=== PATIENT | female | born 1985 | race American Indian/Alaskan Native ===

== ENCOUNTER 2016-07-06 15:44 | Inpatient (IN) | payer MEDICAID ==
--- NOTE | 2016-07-06 16:37 | History and Physical Report ---
History of Present Illness Date of examination: 07/06/16 Chief complaint: Elevated blood pressure History of present illness: 31-year-old 0-11 at 33+4 weeks is admitted for above issue and complaint; she is a life cycle [employer] patient. Essential history this patient with care at [facility] which has been complicated by positive QUAD s/p Negative amniocentesis. She claims her first was complicated by positive QUAD with negative amnio as well. Patient gives an oral History of IUGR, last ultrasound was obtained near [facility]. It appears the rest of her has been unremarkable. On 07/01/16 however, she had elevated BP to the 160's/100's in the clinic. She had 24-hour urine protein collected. Patient complains the volume of urine produced was small. Called [facility] Office and I was informed results is 120 mg in 24 hrs. It appears no documentation is made of the volume of urine produced. He is sent here today as she had another elevated blood pressure in the office today. Systolic blood pressures 160 over 100s diastolic. She denies headache, no scotomata, no abdominal pain. She has no contractions, no loss of fluid no vaginal bleeding plus movement Past History Past Medical History: no pertinent history Past Surgical History: no surgical history [employer] History: chlamydia. denies: gonorrhea, hepatitis B, hepatitis C, herpes, HIV, syphilis Social history: single, full code. denies: smoking, alcohol abuse, prescription drug abuse, IV drug use - Obstetrical History Expected Date of Delivery: 08/20/16 Actual Gestation: 33 Week(s) 4 Day(s) : 3 Para: 1 Number of Pregnancies: 0 Induced : 1 Number of Living Children: 1 Medications and Allergies Allergies Allergy/AdvReac Type Severity Reaction Status Date / Time No Known Allergies Allergy Unverified 01/05/16 18:20 Review of Systems Constitutional: no fever, no chills Eyes: no diplopia, no photophobia, no loss of peripheral vision, no loss of vision, no tunnel vision, no blind spots Ears, nose, mouth and throat: headache Cardiovascular: no chest pain, no orthopnea, no syncope, no lightheadedness, no shortness of breath, no dyspnea on exertion Respiratory: no cough with sputum, no hemoptysis, no shortness of breath, no dyspnea on exertion Gastrointestinal: no abdominal pain, no nausea, no vomiting, no heartburn, no indigestion, no dyspepsia/bloating Genitourinary: no vaginal bleeding, no vaginal discharge, no leakage of fluid Neurological: no seizures, no double vision - Physical Exam Cardiovascular: Regular rate, Normal S1, Normal S2 Lungs: Positive: Clear to auscultation, Normal air movement Abdomen: Positive: normal appearance, soft. Negative: distention, tenderness, guarding, rigidity Uterus: Positive: enlarged (EFW ~ 3200). Negative: tender Adnexa: both: normal Extremities: Positive: normal - Obstetrical FHR: category 1 Results All other labs normal. Assessment and Plan A: 31 y/o at 33+4 wks with elevated BP Issues -Oral hx of Pos QUAD s/p neg amnio -suspect IUGR P: -Admit for observation -HELLP labs and 24-hour urine protein -Serial BP's -Growth scan -Consider BMZ course if BP's noted to be elevated -Consider MFM consult after 24 hr protein -Disposition after serial BP's - Patient Problems (1) 33 weeks gestation of Current Visit: Yes Status: Acute (2) Hypertension affecting in third trimester Current Visit: Yes Status: Acute
[2016-07-06] MEDS ORDERED: NORMODYNE IV PRN (16:45)
[2016-07-06 19:18] LABS: Bilirubin,Urine NEG (Negative); Blood,Urine NEG (Negative); Ketones,Urine NEG (Negative); Leukocyte Esterase,Urine NEG (Negative); Mucus,Urine 3+ /HPF; Nitrite,Urine NEG (Negative)
[2016-07-06] MEDS: LACTATED RINGERS 1,000 ML IV SCH (20:00)
[2016-07-06 20:41] LABS: Hematocrit 27.8 % (30.3-42.9); Hemoglobin 8.3 gm/dl (10.1-14.3); Mean Corpuscular HGB Conc 30 % (30-34); Platelet Count 181 K/mm3 (140-440); Red Blood Count 4.09 M/mm3 (3.65-5.03); Red Cell Distribution Width 19.5 % (13.2-15.2); White Blood Count 8.9 K/mm3 (4.5-11.0)
--- NOTE | 2016-07-06 20:42 | Event Note ---
Date: 07/06/16 Just reviewed report of growth scan; EFW is 1703 g (2%). Note that AC and FL are ~1-2 weeks behind BPD and HC. BPP 02/01 today A: Patient has severe IUGR P: -Will obtain Doppler studies now -Celestone course now -MFM consult -Notify NICU -Will start Magnesium for severe range BP's -Discuss above with patient
[2016-07-06 20:46] LABS: Mean Corpuscular Hemoglobin 20 pg (28-32); Mean Corpuscular Volume 68 fl (79-97)
[2016-07-06 21:07] LABS: Alanine Aminotransferase 9 units/L (7-56); Albumin 2.9 g/dL (3.9-5); Albumin/Globulin Ratio 0.8 %; Alkaline Phosphatase 98 units/L (35-129); Anion Gap 20 mmol/L; BUN/Creatinine Ratio 36.66; Bilirubin,Total 0.6 mg/dL (0.1-1.2); Blood Urea Nitrogen 22 mg/dL (7-17); Calcium 8.3 mg/dL (8.4-10.2); Carbon Dioxide 19 mmol/L (22-30); Chloride 101.1 mmol/L (98-107); Glucose 117 mg/dL (65-100); Potassium 3.5 mmol/L (3.6-5.0); Sodium 137 mmol/L (137-145); Total Protein 6.4 g/dL (6.3-8.2)
[2016-07-06 21:15] LABS: Bilirubin,Direct < 0.2 mg/dL (0-0.2); Bilirubin,Indirect 0.4 mg/dL
[2016-07-06] MEDS: CELESTONE SOLUSPAN IM SCH (22:05)
--- NOTE | 2016-07-06 23:52 | Ultrasound Report ---
FINAL REPORT EXAM: US OB VELOCIMETRY UMBILCAL ART HISTORY: Severe IUGR TECHNIQUE: Directed sonography of the umbilical cord. PRIORS: None. FINDINGS: Free loop systolic/diastolic ratio measured x3 as follows: 1. 5.15 2. 3.18 3. 5.58 S/D ratio average: 4.63 (any S/D ratio over 4 is considered abnormal). End-diastolic flow pattern demonstrates normal waveform, which is persistent. Free loop resistive index measured x3 as follows: 1. 0.81 2. 0.69 3. 0.82 R/I ratio average: 0.77. End-diastolic flow pattern demonstrates normal waveform, which is persistent. IMPRESSION: 1. Mildly abnormal S/D ratio average, as reported.
--- NOTE | 2016-07-07 07:45 | Ultrasound Report ---
BIOPHYSICAL PROFILE: History: Elevated blood pressure during . Technique: Transabdominal ultrasound with Doppler interrogation. 2 - breathing movements 2 - movements 2 - posture and tone 2 - Qualitative amniotic fluid volume 8 - TOTAL SCORE OF POSSIBLE 8 Heart Rate (bpm) 138
--- NOTE | 2016-07-07 09:05 | Admit Criteria Form ---
Admission Criteria Documentation: OBSTETRIC AND GYNECOLOGIC DISEASE GRG Clinical Indications for Admission to Inpatient Care (Place 'X' for any and all applicable criteria): Hospital admission is needed for appropriate care of the patient because of ANY ONE of the following (1)(2)(3): [ ]I. Hemodynamic instability, as indicated by ALL of the following (1)(2)(3)( 4)(5): [ ]a) Vital signs or other findings not as expected for chronic patient condition or baseline [ ]b) Instability indicated by ANY ONE of the following: [ ]i) Hypotension [ ]ii) Symptomatic tachycardia unresponsive to treatment (eg, analgesia, fluids, sedation as indicated) [ ]iii) Inadequate perfusion indicated by ANY ONE of the following: [ ]A. Lactic acidosis (greater than 2 mmol/ L) [ ]B. New abnormal capillary refill ( greater than 3 seconds) [ ]C. Reduced urine output [ ]D. New altered mental status [ ]iv) Orthostatic vital sign changes unresponsive to treatment (eg, fluids) [ ]v) Multiple IV fluid boluses required to maintain adequate blood pressure or perfusion [ ]vi) IV inotropic or vasopressor medication required to maintain adequate blood pressure or perfusion [ ]II. Obstetric infection requiring hospitalization indicated by ANY ONE of the following(13)(14): [ ]a) Chorioamnionitis [ ]b) Endometritis (except mild endometritis) [ ]c) Pelvic abscess [ ]d) Peritonitis [ ]e) Septic pelvic thrombophlebitis [ ]III. Amniotic fluid or pulmonary embolism(4)(5)(6) [ ]IV. Suspected peritonitis or ectopic requiring monitoring beyond scope of 24 hours or observation care(7)(8) [ ]V. compromise requiring hospitalization indicated by ALL of the following(9)(10): [ ]a) compromise indicated by ANY ONE of the following(11): [ ]i) Abnormal heart rate monitoring [ ]ii) Abnormal contraction stress test [ ]iii) Abnormal biophysical profile [ ]iv) Abnormal Doppler flow in vessels (ie, Doppler velocimetry) (12) [ ]b) Persistence of compromise indicators during evaluation and observation monitoring [ ]. Ovarian hyperstimulation syndrome requiring hospitalization[A] indicated by ALL of the following(15): [ ]a) Recent ovarian stimulation with gonadotropins, or evidence on ultrasound of spontaneous emergence of large number of ovarian follicles [ ]b) Evidence of severe ovarian hyperstimulation syndrome indicated by ANY ONE of the following: [ ]i) Abdominal pain unresponsive to oral therapy [ ]ii) Acute respiratory distress syndrome [ ]iii) Electrolyte imbalance ( eg, hyponatremia, hyperkalemia) [ ]iv) Elevated liver enzymes [ ]v) Evidence of thromboembolism [ ]vi) Hemoconcentration (hematocrit greater than 45 % (0.45)) [ ]vii) Inability to maintain oral intake adequate to prevent hemoconcentration [ ]viii) Marked hypotension from baseline (eg, SBP 20 mmHg below patients usual pressure) [ ]ix) Oliguria or anuria [ ]x) Ovarian torsion [ ]xi) Pleural or pericardial effusion on x-ray or echocardiogram [ ]xii) Rapid increase in serum creatinine to greater than 1.2 mg/dL (106 micromoles/L) or creatinine clearance less than 50 mL/min/1.73m2 (0.84 mL/ sec/1.73m2) [ ]xiii) Ruptured ovarian cyst with hemorrhage [ ]xiv) Severe abdominal pain or peritoneal signs [ ]xv) Tense ascites that cannot be managed with paracentesis in outpatient setting [ ]VII.Pelvic infection requiring hospitalization indicated by ANY ONE of the following (16): [ ]a) Outpatient treatment has failed or is not appropriate (eg, inpatient monitoring required) [ ]b) Pelvic abscess [ ]c) Surgical emergency cannot be excluded (eg, rigid abdomen) [ ]d) Vomiting precluding outpatient and observation care management VIII. loss complications requiring inpatient medical treatment indicated by ANY ONE of the following (4)(7)(9): [ ]a) Fever [ ]b) Peritonitis [ ]c) Sepsis [ ]d) Severe abdominal pain [ ]IX. or patient requiring monitoring for severe heart failure, pulmonary disease, or other comorbid condition (eg, peripartum cardiomyopathy) (4)(17) [ ]X. patient with rupture of membranes requiring hospitalization indicated by ANY ONE of the following: [ ]a) Chorioamnionitis, cloudy amniotic fluid, or other evidence of infection [ ]b) compromise or other need for monitoring (11) [ ]c) Gestation longer than 23 weeks and ANY ONE of the following: [ ]i) Abnormal (noncephalic) presentation [ ]ii) Inadequate home environment (eg, home too far from hospital, unable to rapidly return to hospital) [ ]d) Temperature greater than 100.4 degrees F (38 degrees C)( oral) [ ]e) Threatened labor requiring monitoring beyond scope (eg, over 24 hours) of observation Care [ ] XI. complications, including severe lacerations, infections, or retained placenta (19) [ ] XII.Uterine bleeding with high-risk features indicated by ANY ONE of the following (4): [ ]a) Active major hemorrhage (eg, hemorrhage) [ ]b) Coagulopathy with active bleeding [ ]c) Gestational trophoblastic disease (eg, molar ) (20 ) [ ]d) (longer than 23 weeks) and ANY ONE of the following: [ ]i) Pain [ ]ii) Placental abruption, known or suspected [ ]iii) Placenta accrete, known or suspected(21) [ ]iv) Placenta previa, known or suspected [ ]v) Vasa previa [ ]e) Severe anemia [X ]XIII. Obstetric or Gynecologic Disease, condition or symptom for which ANY ONE of the following: [ X]a) Emergency and observation care have failed or are not considered appropriate ( Also use General Criteria: Observation Care Criteria as appropriate) [ ]b) Presence of a General Admission Criteria or Pediatric General Admission Criteria The original [facility] [employer] content created by [employer] [employer] has been revised. The portions of the content which have been revised are identified through the use of italic text or in bold, and [facility] has neither reviewed nor approved the modified material.All other unmodified content is copyright [facility]. Please see references footnoted in the original [facility] edition 2016 Admission Criteria Met: Yes
--- NOTE | 2016-07-07 09:53 | Ultrasound Report ---
OB ULTRASOUND: HISTORY: Intrauterine growth restriction. TECHNIQUE: Transabdominal ultrasound with Doppler interrogation. Gestation: ocasio Position: Transverse Head Maternal RT. Amniotic Fluid: WNL (7-24 cm) MATILDA = 14.3 cm Placenta: fundal Placental Grade: I Heart Rate: 138 BPM Cervical length: 3.0 cm (Normal > 3 cm) NEUROANATOMY VISUALIZED: Choroid Plexus Cisterna Magnum Cerebellum Lateral Ventricle ANATOMY VISUALIZED: Stomach Kidneys Bladder Diaphragm 4 Chamber Heart Heart 3 Vessel Cord Abd. Cord Insert SPINE VISUALIZED: Limited spine due to position The following are not demonstrated due to maternal body habitus or lie: spine. BPD: 8.1 cm = 32 w 3 d HC: 29.5 cm = 32 w 4 d AC: 26.8 cm = 30 w 6 d FL: 5.9 cm = 30 w 5 d HC/AC Ratio: 1.10 Cephalic Index: 82.7 Estimated Weight: 1703 grams Clinical age = 33 w 4 d EDC: 08-20-16 US Gest. Age = 31 w 5 d EDC: 09-02-16
--- NOTE | 2016-07-07 12:04 | Progress Note ---
Assessment and Plan - Patient Problems (1) 33 weeks gestation of Diagnosis Date: 07/07/16 Current Visit: Yes Status: Acute Plan to address problem: A: IUP @ 33 5/7 weeks Preeclampsia - elevated BP's. Normal PIH labs. IUGR P: Continue present management Awaiting [facility] consultation 24hr urine in progress (2) Hypertension affecting in third trimester Diagnosis Date: 07/07/16 Current Visit: Yes Status: Acute (3) IUGR (intrauterine growth retardation) affecting mother Diagnosis Date: 07/07/16 Current Visit: Yes Status: Acute Qualifiers: Fetus number: single or unspecified fetus Trimester: third trimester Qualified Code(s): O36.5930 - Maternal care for other known or suspected poor growth, third trimester, not applicable or unspecified Subjective - Subjective Date of service: 07/07/16 Principal diagnosis: IUP @ 33 5/7 weeks; Severe IUGR; Preeclampsia Interval history: Pt is feeling well without complaints. She denies headaches, blurred vision or contractions. BP 171/92 Patient reports: movement normal, no new complaints, no loss of fluid, no vaginal bleeding, no contractions Objective - Vital Signs Vital Signs: Vital Signs - 12hr 07/07/16 07/07/16 07/07/16 00:07 00:12 00:13 Temperature Pulse Rate 76 73 77 Pulse Rate [ From Monitor] Respiratory Rate Blood Pressure 152/80 Blood Pressure [Left Arm] O2 Sat by Pulse 100 100 84 Oximetry 07/07/16 07/07/16 07/07/16 00:21 00:26 00:30 Temperature 98.2 F Pulse Rate 84 Pulse Rate [ From Monitor] Respiratory Rate Blood Pressure Blood Pressure [Left Arm] O2 Sat by Pulse 89 92 Oximetry 07/07/16 07/07/16 07/07/16 00:31 00:36 00:41 Temperature Pulse Rate 77 84 69 Pulse Rate [ From Monitor] Respiratory Rate Blood Pressure Blood Pressure [Left Arm] O2 Sat by Pulse 99 99 100 Oximetry 07/07/16 07/07/16 07/07/16 00:46 00:51 00:56 Temperature Pulse Rate 81 79 78 Pulse Rate [ From Monitor] Respiratory Rate Blood Pressure Blood Pressure [Left Arm] O2 Sat by Pulse 100 99 99 Oximetry 07/07/16 07/07/16 07/07/16 01:01 01:06 01:07 Temperature Pulse Rate 75 70 77 Pulse Rate [ From Monitor] Respiratory Rate Blood Pressure 173/81 Blood Pressure [Left Arm] O2 Sat by Pulse 99 99 Oximetry 07/07/16 07/07/16 07/07/16 01:11 01:16 01:21 Temperature Pulse Rate 77 72 72 Pulse Rate [ From Monitor] Respiratory Rate Blood Pressure Blood Pressure [Left Arm] O2 Sat by Pulse 100 99 99 Oximetry 07/07/16 07/07/16 07/07/16 01:26 01:31 01:35 Temperature Pulse Rate 69 72 71 Pulse Rate [ From Monitor] Respiratory Rate Blood Pressure Blood Pressure [Left Arm] O2 Sat by Pulse 99 99 99 Oximetry 07/07/16 07/07/16 07/07/16 01:41 01:46 01:51 Temperature Pulse Rate 85 76 85 Pulse Rate [ From Monitor] Respiratory Rate Blood Pressure Blood Pressure [Left Arm] O2 Sat by Pulse 99 99 99 Oximetry 07/07/16 07/07/16 07/07/16 01:56 02:01 02:06 Temperature Pulse Rate 75 83 72 Pulse Rate [ From Monitor] Respiratory Rate Blood Pressure Blood Pressure [Left Arm] O2 Sat by Pulse 98 98 98 Oximetry 07/07/16 07/07/16 07/07/16 02:07 02:17 02:18 Temperature Pulse Rate 74 58 L Pulse Rate [ From Monitor] Respiratory Rate Blood Pressure 162/100 Blood Pressure [Left Arm] O2 Sat by Pulse 78 L 90 Oximetry 07/07/16 07/07/16 07/07/16 02:21 02:22 02:24 Temperature Pulse Rate 71 73 73 Pulse Rate [ From Monitor] Respiratory Rate Blood Pressure 152/96 146/78 Blood Pressure [Left Arm] O2 Sat by Pulse 37 L 98 Oximetry 07/07/16 07/07/16 07/07/16 02:29 02:34 02:39 Temperature Pulse Rate 75 88 74 Pulse Rate [ From Monitor] Respiratory Rate Blood Pressure Blood Pressure [Left Arm] O2 Sat by Pulse 98 99 99 Oximetry 07/07/16 07/07/16 07/07/16 02:44 02:49 02:54 Temperature Pulse Rate 73 81 81 Pulse Rate [ From Monitor] Respiratory Rate Blood Pressure Blood Pressure [Left Arm] O2 Sat by Pulse 98 99 98 Oximetry 07/07/16 07/07/16 07/07/16 02:59 03:04 03:07 Temperature Pulse Rate 71 73 75 Pulse Rate [ From Monitor] Respiratory Rate Blood Pressure 153/90 Blood Pressure [Left Arm] O2 Sat by Pulse 99 98 Oximetry 07/07/16 07/07/16 07/07/16 03:09 03:14 03:19 Temperature Pulse Rate 82 78 71 Pulse Rate [ From Monitor] Respiratory Rate Blood Pressure Blood Pressure [Left Arm] O2 Sat by Pulse 98 99 97 Oximetry 07/07/16 07/07/16 07/07/16 03:24 03:29 03:34 Temperature Pulse Rate 71 71 75 Pulse Rate [ From Monitor] Respiratory Rate Blood Pressure Blood Pressure [Left Arm] O2 Sat by Pulse 97 98 99 Oximetry 07/07/16 07/07/16 07/07/16 03:39 03:44 03:49 Temperature Pulse Rate 71 69 77 Pulse Rate [ From Monitor] Respiratory Rate Blood Pressure Blood Pressure [Left Arm] O2 Sat by Pulse 99 98 98 Oximetry 07/07/16 07/07/16 07/07/16 03:54 03:59 04:04 Temperature Pulse Rate 71 75 72 Pulse Rate [ From Monitor] Respiratory Rate Blood Pressure Blood Pressure [Left Arm] O2 Sat by Pulse 99 99 98 Oximetry 07/07/16 07/07/16 07/07/16 04:08 04:09 04:14 Temperature Pulse Rate 68 68 72 Pulse Rate [ From Monitor] Respiratory Rate Blood Pressure 139/89 Blood Pressure [Left Arm] O2 Sat by Pulse 99 98 Oximetry 07/07/16 07/07/16 07/07/16 04:18 04:24 04:29 Temperature Pulse Rate 69 70 74 Pulse Rate [ From Monitor] Respiratory Rate Blood Pressure Blood Pressure [Left Arm] O2 Sat by Pulse 98 99 99 Oximetry 07/07/16 07/07/16 07/07/16 04:34 04:39 04:44 Temperature Pulse Rate 73 71 69 Pulse Rate [ From Monitor] Respiratory Rate Blood Pressure Blood Pressure [Left Arm] O2 Sat by Pulse 99 99 98 Oximetry 07/07/16 07/07/16 07/07/16 04:46 04:49 04:56 Temperature Pulse Rate 59 L 74 178 H Pulse Rate [ From Monitor] Respiratory Rate Blood Pressure Blood Pressure [Left Arm] O2 Sat by Pulse 88 69 L 61 L Oximetry 07/07/16 07/07/16 07/07/16 04:59 05:01 05:04 Temperature Pulse Rate 144 H 54 L Pulse Rate [ From Monitor] Respiratory Rate Blood Pressure Blood Pressure [Left Arm] O2 Sat by Pulse 56 L 66 L 71 L Oximetry 07/07/16 07/07/16 07/07/16 05:07 05:19 05:25 Temperature Pulse Rate Pulse Rate [ From Monitor] Respiratory Rate Blood Pressure Blood Pressure [Left Arm] O2 Sat by Pulse 79 L 76 L 68 L Oximetry 07/07/16 07/07/16 07/07/16 05:26 05:31 05:36 Temperature Pulse Rate 116 H 74 72 Pulse Rate [ From Monitor] Respiratory Rate Blood Pressure Blood Pressure [Left Arm] O2 Sat by Pulse 72 L 99 97 Oximetry 07/07/16 07/07/16 07/07/16 05:41 05:46 05:51 Temperature Pulse Rate 73 73 78 Pulse Rate [ From Monitor] Respiratory Rate Blood Pressure Blood Pressure [Left Arm] O2 Sat by Pulse 96 96 95 Oximetry 07/07/16 07/07/16 07/07/16 05:52 05:56 06:00 Temperature Pulse Rate 79 80 74 Pulse Rate [ From Monitor] Respiratory Rate Blood Pressure Blood Pressure [Left Arm] O2 Sat by Pulse 94 94 94 Oximetry 07/07/16 07/07/16 07/07/16 06:01 06:06 06:07 Temperature Pulse Rate 77 80 75 Pulse Rate [ From Monitor] Respiratory Rate Blood Pressure 129/82 Blood Pressure [Left Arm] O2 Sat by Pulse 94 94 Oximetry 07/07/16 07/07/16 07/07/16 06:08 06:11 06:13 Temperature Pulse Rate 75 73 79 Pulse Rate [ From Monitor] Respiratory Rate Blood Pressure Blood Pressure [Left Arm] O2 Sat by Pulse 94 95 94 Oximetry 07/07/16 07/07/16 07/07/16 06:16 06:18 06:21 Temperature Pulse Rate 74 79 73 Pulse Rate [ From Monitor] Respiratory Rate Blood Pressure Blood Pressure [Left Arm] O2 Sat by Pulse 95 87 97 Oximetry 07/07/16 07/07/16 07/07/16 06:26 06:31 06:36 Temperature Pulse Rate 74 79 72 Pulse Rate [ From Monitor] Respiratory Rate Blood Pressure Blood Pressure [Left Arm] O2 Sat by Pulse 97 96 97 Oximetry 07/07/16 07/07/16 07/07/16 06:41 06:46 06:51 Temperature Pulse Rate 77 76 77 Pulse Rate [ From Monitor] Respiratory Rate Blood Pressure Blood Pressure [Left Arm] O2 Sat by Pulse 96 96 96 Oximetry 07/07/16 07/07/16 07/07/16 06:56 07:01 07:06 Temperature Pulse Rate 73 76 73 Pulse Rate [ From Monitor] Respiratory Rate Blood Pressure Blood Pressure [Left Arm] O2 Sat by Pulse 96 96 96 Oximetry 07/07/16 07/07/16 07/07/16 07:07 07:11 07:16 Temperature Pulse Rate 69 74 74 Pulse Rate [ From Monitor] Respiratory Rate Blood Pressure 148/72 Blood Pressure [Left Arm] O2 Sat by Pulse 96 96 Oximetry 07/07/16 07/07/16 07/07/16 07:21 07:26 07:31 Temperature Pulse Rate 70 72 72 Pulse Rate [ From Monitor] Respiratory Rate Blood Pressure Blood Pressure [Left Arm] O2 Sat by Pulse 96 96 96 Oximetry 07/07/16 07/07/16 07/07/16 07:36 07:41 07:46 Temperature Pulse Rate 68 71 69 Pulse Rate [ From Monitor] Respiratory Rate Blood Pressure Blood Pressure [Left Arm] O2 Sat by Pulse 96 97 96 Oximetry 07/07/16 07/07/16 07/07/16 07:50 07:51 07:56 Temperature Pulse Rate 69 74 68 Pulse Rate [ From Monitor] Respiratory Rate Blood Pressure 154/80 Blood Pressure [Left Arm] O2 Sat by Pulse 97 97 Oximetry 07/07/16 07/07/16 07/07/16 08:01 08:06 08:07 Temperature Pulse Rate 72 69 66 Pulse Rate [ From Monitor] Respiratory Rate Blood Pressure 154/83 Blood Pressure [Left Arm] O2 Sat by Pulse 97 98 Oximetry 07/07/16 07/07/16 07/07/16 08:11 08:16 08:21 Temperature Pulse Rate 68 69 76 Pulse Rate [ From Monitor] Respiratory Rate Blood Pressure Blood Pressure [Left Arm] O2 Sat by Pulse 98 97 95 Oximetry 07/07/16 07/07/16 07/07/16 08:22 08:26 08:31 Temperature Pulse Rate 88 69 71 Pulse Rate [ From Monitor] Respiratory Rate Blood Pressure Blood Pressure [Left Arm] O2 Sat by Pulse 87 98 97 Oximetry 07/07/16 07/07/16 07/07/16 08:36 08:41 08:43 Temperature Pulse Rate 68 70 80 Pulse Rate [ From Monitor] Respiratory Rate Blood Pressure Blood Pressure [Left Arm] O2 Sat by Pulse 98 98 94 Oximetry 07/07/16 07/07/16 07/07/16 08:46 08:51 08:56 Temperature Pulse Rate 68 70 83 Pulse Rate [ From Monitor] Respiratory Rate Blood Pressure Blood Pressure [Left Arm] O2 Sat by Pulse 97 98 97 Oximetry 07/07/16 07/07/16 07/07/16 09:01 09:06 09:07 Temperature Pulse Rate 72 74 71 Pulse Rate [ From Monitor] Respiratory Rate Blood Pressure 140/76 Blood Pressure [Left Arm] O2 Sat by Pulse 96 96 Oximetry 07/07/16 07/07/16 07/07/16 09:11 09:16 09:21 Temperature Pulse Rate 77 73 72 Pulse Rate [ From Monitor] Respiratory Rate Blood Pressure Blood Pressure [Left Arm] O2 Sat by Pulse 96 96 98 Oximetry 07/07/16 07/07/16 07/07/16 09:26 09:31 09:37 Temperature Pulse Rate 72 70 78 Pulse Rate [ From Monitor] Respiratory Rate Blood Pressure Blood Pressure [Left Arm] O2 Sat by Pulse 97 99 99 Oximetry 07/07/16 07/07/16 07/07/16 09:42 09:47 09:52 Temperature Pulse Rate 74 70 78 Pulse Rate [ From Monitor] Respiratory Rate Blood Pressure Blood Pressure [Left Arm] O2 Sat by Pulse 98 97 99 Oximetry 07/07/16 07/07/16 07/07/16 09:57 10:02 10:07 Temperature Pulse Rate 73 71 69 Pulse Rate [ From Monitor] Respiratory Rate Blood Pressure 195/95 Blood Pressure [Left Arm] O2 Sat by Pulse 100 99 98 Oximetry 07/07/16 07/07/16 07/07/16 10:12 10:15 10:24 Temperature Pulse Rate 78 72 Pulse Rate [ From Monitor] Respiratory Rate Blood Pressure Blood Pressure [Left Arm] O2 Sat by Pulse 100 79 L 78 L Oximetry 07/07/16 07/07/16 07/07/16 10:29 10:30 10:31 Temperature Pulse Rate 52 L 71 Pulse Rate [ From Monitor] Respiratory Rate Blood Pressure 128/70 Blood Pressure [Left Arm] O2 Sat by Pulse 79 L 86 Oximetry 07/07/16 07/07/16 07/07/16 10:34 10:39 10:44 Temperature Pulse Rate 73 72 75 Pulse Rate [ From Monitor] Respiratory Rate Blood Pressure Blood Pressure [Left Arm] O2 Sat by Pulse 99 98 99 Oximetry 07/07/16 07/07/16 07/07/16 10:48 10:49 10:54 Temperature Pulse Rate 74 74 69 Pulse Rate [ From Monitor] Respiratory Rate Blood Pressure Blood Pressure [Left Arm] O2 Sat by Pulse 91 91 98 Oximetry 07/07/16 07/07/16 07/07/16 10:59 11:01 11:05 Temperature Pulse Rate 80 89 81 Pulse Rate [ From Monitor] Respiratory Rate Blood Pressure Blood Pressure [Left Arm] O2 Sat by Pulse 98 92 80 L Oximetry 07/07/16 07/07/16 07/07/16 11:07 11:10 11:15 Temperature Pulse Rate 71 85 76 Pulse Rate [ From Monitor] Respiratory Rate Blood Pressure 149/89 Blood Pressure [Left Arm] O2 Sat by Pulse 94 91 92 Oximetry 07/07/16 07/07/16 07/07/16 11:20 11:25 11:28 Temperature Pulse Rate 85 75 34 L Pulse Rate [ From Monitor] Respiratory Rate Blood Pressure Blood Pressure [Left Arm] O2 Sat by Pulse 91 91 94 Oximetry 07/07/16 07/07/16 07/07/16 11:31 11:33 11:36 Temperature Pulse Rate 66 67 Pulse Rate [ From Monitor] Respiratory Rate Blood Pressure Blood Pressure [Left Arm] O2 Sat by Pulse 100 80 L 95 Oximetry 07/07/16 07/07/16 07/07/16 11:41 11:46 11:51 Temperature Pulse Rate 80 70 81 Pulse Rate [ From Monitor] Respiratory Rate Blood Pressure Blood Pressure [Left Arm] O2 Sat by Pulse 98 92 89 Oximetry 07/07/16 07/07/16 07/07/16 11:56 11:58 11:59 Temperature 99.2 F Pulse Rate 69 75 Pulse Rate [ 75 From Monitor] Respiratory 18 Rate Blood Pressure 171/92 Blood Pressure 171/92 [Left Arm] O2 Sat by Pulse 93 87 99 Oximetry 07/07/16 12:01 Temperature Pulse Rate 73 Pulse Rate [ From Monitor] Respiratory Rate Blood Pressure Blood Pressure [Left Arm] O2 Sat by Pulse 100 Oximetry - Exam Cardiovascular: Regular rate Lungs: Clear to auscultation Abdomen: Present: normal appearance, soft Uterus: Present: normal FHR: category 1 Uterine Contraction Monitor Mode: External Uterine Contraction Pattern: Irregular - Labs Labs: Abnormal Labs 07/06/16 07/06/16 20:00 20:00 Hgb 8.3 L Hct 27.8 L MCV 68 L MCH 20 L RDW 19.5 H Potassium 3.5 L Carbon Dioxide 19 L BUN 22 H Creatinine 0.6 L Glucose 117 H Calcium 8.3 L Albumin 2.9 L Laboratory Results - last 24 hr 07/06/16 07/06/16 07/06/16 16:40 20:00 20:00 WBC 8.9 RBC 4.09 Hgb 8.3 L Hct 27.8 L MCV 68 L MCH 20 L MCHC 30 RDW 19.5 H Plt Count 181 Sodium 137 Potassium 3.5 L Chloride 101.1 Carbon Dioxide 19 L Anion Gap 20 BUN 22 H Creatinine 0.6 L Estimated GFR > 60 BUN/Creatinine Ratio 36.66 Glucose 117 H Calcium 8.3 L Total Bilirubin 0.6 Direct Bilirubin < 0.2 Indirect Bilirubin 0.4 AST 22 ALT 9 Alkaline Phosphatase 98 Total Protein 6.4 Albumin 2.9 L Albumin/Globulin Ratio 0.8 Urine Color Yellow Urine Turbidity Clear Urine pH 6.0 Ur Specific [place] 1.020 Urine Protein 100 mg/dl Urine Glucose (UA) Neg Urine Ketones Neg Urine Blood Neg Urine Nitrite Neg Urine Bilirubin Neg Urine Urobilinogen 2.0 Ur Leukocyte Esterase Neg Urine WBC (Auto) 2.0 Urine RBC (Auto) 4.0 Urine Mucus 3+ Blood Type Antibody Screen 07/06/16 20:00 WBC RBC Hgb Hct MCV MCH MCHC RDW Plt Count Sodium Potassium Chloride Carbon Dioxide Anion Gap BUN Creatinine Estimated GFR BUN/Creatinine Ratio Glucose Calcium Total Bilirubin Direct Bilirubin Indirect Bilirubin AST ALT Alkaline Phosphatase Total Protein Albumin Albumin/Globulin Ratio Urine Color Urine Turbidity Urine pH Ur Specific [place] Urine Protein Urine Glucose (UA) Urine Ketones Urine Blood Urine Nitrite Urine Bilirubin Urine Urobilinogen Ur Leukocyte Esterase Urine WBC (Auto) Urine RBC (Auto) Urine Mucus Blood Type O POSITIVE Antibody Screen Negative
[2016-07-07] MEDS: LACTATED RINGERS 1,000 ML IV SCH ×2 (13:44→22:01)
--- NOTE | 2016-07-07 16:25 | Consultation ---
History of Present Illness History of present illness: 31-year-old 0-11 at 33.5 weeks is admitted on 07/06/16; she is a life cycle [employer] patient. Essential history this patient with care at [facility] which has been complicated by positive QUAD with a Negative amniocentesis. Patient followed for IUGR On 07/01/16 however, she had elevated BP to the 160's/100's in life cycle [employer] . She had 24-hour urine protein collected.-120 mg in 24 hrs She denies headache, no scotomata, no abdominal pain. She has no contractions, no loss of fluid no vaginal bleeding plus movement Past History Past Medical History: no pertinent history Past Surgical History: no surgical history CERTIFIED NURSE History: chlamydia. denies: gonorrhea, hepatitis B, hepatitis C, herpes, HIV, syphilis - Obstetrical History : 3 Medications and Allergies Allergies Allergy/AdvReac Type Severity Reaction Status Date / Time No Known Allergies Allergy Unverified 01/05/16 18:20 Active Meds: Active Medications Betamethasone Acet/Betameth SodPhos (Celestone Soluspan) 12 mg IM Q24H ROBIN Stop: 07/07/16 21:01 Last Admin: 07/06/16 22:05 Dose: 12 mg Hydralazine HCl (Apresoline) 5 mg IV Q30MIN PRN PRN Reason: Hypertension Lactated Ringer's (Lactated Ringers) 1,000 mls @ 125 mls/hr IV DIRECT ROBIN Last Admin: 07/07/16 13:44 Dose: 125 mls/hr Review of Systems Constitutional: no fever, no chills Eyes: deferred, no blurred vision Ears, nose, mouth and throat: deferred Cardiovascular: no chest pain, no orthopnea, no edema, no syncope, no shortness of breath Respiratory: shortness of breath Breasts: deferred Gastrointestinal: other (denies epigastric pain ), no abdominal pain, no nausea , no vomiting, no diarrhea Genitourinary: no vaginal bleeding, no vaginal discharge Rectal Exam: deferred Musculoskeletal: no low back pain Integumentary: no rash Psychiatric: no anxiety, no insomnia Endocrine: no excessive thirst Allergic/Immunologic: wheezing - Vital Signs Vital signs: Vital Signs Pulse Pulse Ox 67 99 07/06/16 16:31 07/06/16 16:31 Temp Pulse Resp BP Pulse Ox 99.2 F 105 H 18 138/82 96 07/07/16 11:59 07/07/16 16:20 07/07/16 11:59 07/07/16 16:07 07/07/16 16:20 - Physical Exam Breasts: Positive: deferred Cardiovascular: Regular rate Lungs: Positive: Clear to auscultation Abdomen: Negative: tenderness, guarding Uterus: Positive: other (gravid NT ) Extremities: Positive: other (Negative geronimo's sign ) Deep Tendon Reflex Grade: Normal +2 - Obstetrical FHR: category 1 Uterine Contraction Pattern: Absent Results Result Diagrams: 07/06/16 20:00 07/06/16 20:00 Abnormal lab results 07/06/16 07/06/16 Range/Units 20:00 20:00 Hgb 8.3 L (10.1-14.3) gm/dl Hct 27.8 L (30.3-42.9) % MCV 68 L (79-97) fl MCH 20 L (28-32) pg RDW 19.5 H (13.2-15.2) % Potassium 3.5 L (3.6-5.0) mmol/L Carbon Dioxide 19 L (22-30) mmol/L BUN 22 H (7-17) mg/dL Creatinine 0.6 L (0.7-1.2) mg/dL Glucose 117 H (65-100) mg/dL Calcium 8.3 L (8.4-10.2) mg/dL Albumin 2.9 L (3.9-5) g/dL All other labs normal. Ultrasound: report reviewed ([facility] U/S 07/06/16 33.4 +FHT 138 MATILDA 14.3 cm 1703 gm 31.5 weeks [facility] reassuring BPP 02/01 ) Assessment and Plan A: 31 y/o at 33.5 wks with elevated BP Issues 1. Abnormal QUAD screen with neg amnio 2. IUGR 3. Reassuring BPP 4. Awaiting 24 hour result 5. S/P BMZ one dose for FLM 6. Anemia P: -Continue inpatient management --Disposition after serial BP's and 24 hr urine
[2016-07-07] MEDS: APRESOLINE IV PRN (21:28)
[2016-07-07] MEDS: CELESTONE SOLUSPAN IM SCH (22:01)
[2016-07-08] MEDS: LACTATED RINGERS 1,000 ML IV SCH ×2 (08:40→17:45)
[2016-07-08] MEDS: APRESOLINE IV PRN ×2 (11:05→11:46)
--- NOTE | 2016-07-08 11:06 | Progress Note ---
Assessment and Plan - Patient Problems (1) 33 weeks gestation of Diagnosis Date: 07/07/16 Current Visit: Yes Status: Acute Plan to address problem: A: IUP @ 33 6/7 weeks Severe Preeclampsia IUGR P: Will keep her NPO for possible delivery - Awaiting APA disposition (2) Hypertension affecting in third trimester Diagnosis Date: 07/07/16 Current Visit: Yes Status: Acute (3) IUGR (intrauterine growth retardation) affecting mother Diagnosis Date: 07/07/16 Current Visit: Yes Status: Acute Qualifiers: Fetus number: single or unspecified fetus Trimester: third trimester Qualified Code(s): O36.5930 - Maternal care for other known or suspected poor growth, third trimester, not applicable or unspecified Subjective - Subjective Date of service: 07/08/16 Principal diagnosis: IUP @ 33 6/7 weeks; Severe IUGR; Preeclampsia Interval history: Pt is feeling well without complaints. She denies headaches, blurred vision or contractions. BP 145-191/78-100 requiring IV hydralazine throughout the night. 24hr urine 2048mg. Received 2nd dose of Celestone. Patient reports: movement normal, no new complaints, no loss of fluid, no vaginal bleeding, no contractions Objective - Vital Signs Vital Signs: Vital Signs - 12hr 07/08/16 07/08/16 07/08/16 00:17 00:19 00:20 Temperature 98.7 F Pulse Rate 189 H Pulse Rate [ From Monitor] Respiratory Rate Blood Pressure Blood Pressure [Right Arm] O2 Sat by Pulse 83 L 71 L Oximetry 07/08/16 07/08/16 07/08/16 00:24 00:29 00:34 Temperature Pulse Rate 90 96 H 89 Pulse Rate [ From Monitor] Respiratory Rate Blood Pressure Blood Pressure [Right Arm] O2 Sat by Pulse 98 99 98 Oximetry 07/08/16 07/08/16 07/08/16 00:39 00:44 00:49 Temperature Pulse Rate 95 H 97 H 100 H Pulse Rate [ From Monitor] Respiratory Rate Blood Pressure Blood Pressure [Right Arm] O2 Sat by Pulse 98 98 87 Oximetry 07/08/16 07/08/16 07/08/16 00:54 00:59 01:02 Temperature Pulse Rate 87 89 83 Pulse Rate [ From Monitor] Respiratory Rate Blood Pressure Blood Pressure [Right Arm] O2 Sat by Pulse 92 92 94 Oximetry 07/08/16 07/08/16 07/08/16 01:04 01:09 01:14 Temperature Pulse Rate 82 84 84 Pulse Rate [ From Monitor] Respiratory Rate Blood Pressure Blood Pressure [Right Arm] O2 Sat by Pulse 92 93 93 Oximetry 07/08/16 07/08/16 07/08/16 01:19 01:24 01:29 Temperature Pulse Rate 86 85 86 Pulse Rate [ From Monitor] Respiratory Rate Blood Pressure Blood Pressure [Right Arm] O2 Sat by Pulse 96 98 95 Oximetry 07/08/16 07/08/16 07/08/16 01:34 01:36 01:39 Temperature Pulse Rate 83 87 92 H Pulse Rate [ From Monitor] Respiratory Rate Blood Pressure Blood Pressure [Right Arm] O2 Sat by Pulse 96 94 96 Oximetry 07/08/16 07/08/16 07/08/16 01:44 01:49 01:54 Temperature Pulse Rate 87 93 H 89 Pulse Rate [ From Monitor] Respiratory Rate Blood Pressure Blood Pressure [Right Arm] O2 Sat by Pulse 96 100 99 Oximetry 07/08/16 07/08/16 07/08/16 01:59 02:04 02:08 Temperature Pulse Rate 88 86 55 L Pulse Rate [ From Monitor] Respiratory Rate Blood Pressure Blood Pressure [Right Arm] O2 Sat by Pulse 100 99 94 Oximetry 07/08/16 07/08/16 07/08/16 02:09 02:14 02:19 Temperature Pulse Rate 74 92 H 86 Pulse Rate [ From Monitor] Respiratory Rate Blood Pressure Blood Pressure [Right Arm] O2 Sat by Pulse 79 L 96 95 Oximetry 07/08/16 07/08/16 07/08/16 02:24 02:29 02:34 Temperature Pulse Rate 86 85 84 Pulse Rate [ From Monitor] Respiratory Rate Blood Pressure Blood Pressure [Right Arm] O2 Sat by Pulse 95 96 96 Oximetry 07/08/16 07/08/16 07/08/16 02:39 02:44 02:49 Temperature Pulse Rate 86 88 88 Pulse Rate [ From Monitor] Respiratory Rate Blood Pressure Blood Pressure [Right Arm] O2 Sat by Pulse 95 96 95 Oximetry 07/08/16 07/08/16 07/08/16 02:54 02:59 03:00 Temperature Pulse Rate 88 87 84 Pulse Rate [ From Monitor] Respiratory Rate Blood Pressure Blood Pressure [Right Arm] O2 Sat by Pulse 95 95 94 Oximetry 07/08/16 07/08/16 07/08/16 03:04 03:07 03:09 Temperature Pulse Rate 89 103 H 83 Pulse Rate [ From Monitor] Respiratory Rate Blood Pressure Blood Pressure [Right Arm] O2 Sat by Pulse 96 88 95 Oximetry 07/08/16 07/08/16 07/08/16 03:13 03:14 03:19 Temperature Pulse Rate 86 89 85 Pulse Rate [ From Monitor] Respiratory Rate Blood Pressure Blood Pressure [Right Arm] O2 Sat by Pulse 94 94 95 Oximetry 07/08/16 07/08/16 07/08/16 03:24 03:29 03:34 Temperature Pulse Rate 91 H 86 86 Pulse Rate [ From Monitor] Respiratory Rate Blood Pressure Blood Pressure [Right Arm] O2 Sat by Pulse 96 95 95 Oximetry 07/08/16 07/08/16 07/08/16 03:39 03:40 03:44 Temperature Pulse Rate 90 85 88 Pulse Rate [ From Monitor] Respiratory Rate Blood Pressure Blood Pressure [Right Arm] O2 Sat by Pulse 96 91 89 Oximetry 07/08/16 07/08/16 07/08/16 03:49 03:54 03:59 Temperature Pulse Rate 89 90 85 Pulse Rate [ From Monitor] Respiratory Rate Blood Pressure Blood Pressure [Right Arm] O2 Sat by Pulse 91 91 96 Oximetry 07/08/16 07/08/16 07/08/16 04:04 04:09 04:14 Temperature Pulse Rate 83 83 88 Pulse Rate [ From Monitor] Respiratory Rate Blood Pressure Blood Pressure [Right Arm] O2 Sat by Pulse 95 96 96 Oximetry 07/08/16 07/08/16 07/08/16 04:19 04:24 04:29 Temperature Pulse Rate 87 85 86 Pulse Rate [ From Monitor] Respiratory Rate Blood Pressure Blood Pressure [Right Arm] O2 Sat by Pulse 98 100 100 Oximetry 07/08/16 07/08/16 07/08/16 04:34 04:39 04:42 Temperature Pulse Rate 86 85 79 Pulse Rate [ From Monitor] Respiratory Rate Blood Pressure Blood Pressure [Right Arm] O2 Sat by Pulse 100 100 94 Oximetry 07/08/16 07/08/16 07/08/16 04:44 04:49 04:54 Temperature Pulse Rate 80 81 82 Pulse Rate [ From Monitor] Respiratory Rate Blood Pressure Blood Pressure [Right Arm] O2 Sat by Pulse 95 97 99 Oximetry 0107/08/16 07/08/16 04:59 05:01 05:04 Temperature Pulse Rate 82 82 61 Pulse Rate [ From Monitor] Respiratory Rate Blood Pressure Blood Pressure [Right Arm] O2 Sat by Pulse 97 91 0 L Oximetry 07/08/16 07/08/16 07/08/16 05:06 05:11 05:12 Temperature Pulse Rate 56 L 59 L Pulse Rate [ From Monitor] Respiratory Rate Blood Pressure Blood Pressure [Right Arm] O2 Sat by Pulse 88 88 89 Oximetry 07/08/16 07/08/16 07/08/16 05:16 05:21 05:22 Temperature Pulse Rate 59 L 64 64 Pulse Rate [ From Monitor] Respiratory Rate Blood Pressure Blood Pressure [Right Arm] O2 Sat by Pulse 86 89 85 Oximetry 07/08/16 07/08/16 07/08/16 05:27 05:31 05:32 Temperature Pulse Rate 75 71 Pulse Rate [ From Monitor] Respiratory Rate Blood Pressure Blood Pressure [Right Arm] O2 Sat by Pulse 88 93 89 Oximetry 07/08/16 07/08/16 07/08/16 05:37 05:39 05:43 Temperature Pulse Rate 62 57 L Pulse Rate [ From Monitor] Respiratory Rate Blood Pressure Blood Pressure [Right Arm] O2 Sat by Pulse 86 88 87 Oximetry 07/08/16 07/08/16 07/08/16 05:44 05:48 05:50 Temperature Pulse Rate 67 56 L Pulse Rate [ From Monitor] Respiratory Rate Blood Pressure Blood Pressure [Right Arm] O2 Sat by Pulse 86 89 86 Oximetry 07/08/16 07/08/16 07/08/16 05:53 05:55 05:58 Temperature Pulse Rate 81 Pulse Rate [ From Monitor] Respiratory Rate Blood Pressure Blood Pressure [Right Arm] O2 Sat by Pulse 87 88 88 Oximetry 07/08/16 07/08/16 07/08/16 06:01 06:03 06:09 Temperature Pulse Rate 70 72 Pulse Rate [ From Monitor] Respiratory Rate Blood Pressure Blood Pressure [Right Arm] O2 Sat by Pulse 90 88 83 L Oximetry 07/08/16 07/08/16 07/08/16 06:14 06:20 06:21 Temperature Pulse Rate 97 H Pulse Rate [ From Monitor] Respiratory Rate Blood Pressure Blood Pressure [Right Arm] O2 Sat by Pulse 83 L 93 90 Oximetry 07/08/16 07/08/16 07/08/16 06:26 06:27 06:31 Temperature Pulse Rate 90 88 80 Pulse Rate [ From Monitor] Respiratory Rate Blood Pressure Blood Pressure [Right Arm] O2 Sat by Pulse 97 79 L 91 Oximetry 07/08/16 07/08/16 07/08/16 06:32 06:36 06:37 Temperature Pulse Rate 84 81 Pulse Rate [ From Monitor] Respiratory Rate Blood Pressure 151/80 Blood Pressure [Right Arm] O2 Sat by Pulse 80 L 97 Oximetry 07/08/16 07/08/16 07/08/16 06:38 06:41 06:45 Temperature Pulse Rate 54 L 79 75 Pulse Rate [ From Monitor] Respiratory Rate Blood Pressure Blood Pressure [Right Arm] O2 Sat by Pulse 84 98 94 Oximetry 07/08/16 07/08/16 07/08/16 06:46 06:51 06:52 Temperature Pulse Rate 75 77 78 Pulse Rate [ From Monitor] Respiratory Rate Blood Pressure 173/100 Blood Pressure [Right Arm] O2 Sat by Pulse 93 97 Oximetry 07/08/16 07/08/16 07/08/16 06:56 07:01 07:06 Temperature Pulse Rate 83 77 74 Pulse Rate [ From Monitor] Respiratory Rate Blood Pressure Blood Pressure [Right Arm] O2 Sat by Pulse 98 98 97 Oximetry 07/08/16 07/08/16 07/08/16 07:07 07:11 07:16 Temperature Pulse Rate 79 78 73 Pulse Rate [ From Monitor] Respiratory Rate Blood Pressure 167/91 Blood Pressure [Right Arm] O2 Sat by Pulse 97 97 Oximetry 07/08/16 07/08/16 07/08/16 07:21 07:22 07:26 Temperature Pulse Rate 72 73 74 Pulse Rate [ From Monitor] Respiratory Rate Blood Pressure 165/94 Blood Pressure [Right Arm] O2 Sat by Pulse 98 97 Oximetry 07/08/16 07/08/16 07/08/16 07:31 07:36 07:37 Temperature Pulse Rate 85 78 82 Pulse Rate [ From Monitor] Respiratory Rate Blood Pressure 172/97 Blood Pressure [Right Arm] O2 Sat by Pulse 98 98 Oximetry 07/08/16 07/08/16 07/08/16 07:41 07:46 07:51 Temperature Pulse Rate 83 74 72 Pulse Rate [ From Monitor] Respiratory Rate Blood Pressure Blood Pressure [Right Arm] O2 Sat by Pulse 98 98 97 Oximetry 07/08/16 07/08/16 07/08/16 07:52 07:56 08:01 Temperature Pulse Rate 77 73 80 Pulse Rate [ From Monitor] Respiratory Rate Blood Pressure 157/93 Blood Pressure [Right Arm] O2 Sat by Pulse 97 97 Oximetry 07/08/16 07/08/16 07/08/16 08:06 08:07 08:11 Temperature Pulse Rate 80 71 80 Pulse Rate [ From Monitor] Respiratory Rate Blood Pressure 191/94 Blood Pressure [Right Arm] O2 Sat by Pulse 98 97 Oximetry 07/08/16 07/08/16 07/08/16 08:16 08:21 08:22 Temperature Pulse Rate 74 74 71 Pulse Rate [ From Monitor] Respiratory Rate Blood Pressure 166/89 Blood Pressure [Right Arm] O2 Sat by Pulse 98 98 Oximetry 07/08/16 07/08/16 07/08/16 08:26 08:31 08:33 Temperature 98.4 F Pulse Rate 70 78 Pulse Rate [ 74 From Monitor] Respiratory 18 Rate Blood Pressure Blood Pressure 157/93 [Right Arm] O2 Sat by Pulse 98 99 98 Oximetry 07/08/16 07/08/16 07/08/16 08:36 08:37 08:41 Temperature Pulse Rate 81 70 78 Pulse Rate [ From Monitor] Respiratory Rate Blood Pressure 158/78 Blood Pressure [Right Arm] O2 Sat by Pulse 98 98 Oximetry 07/08/16 07/08/16 07/08/16 08:46 08:51 08:52 Temperature Pulse Rate 68 84 79 Pulse Rate [ From Monitor] Respiratory Rate Blood Pressure 148/78 Blood Pressure [Right Arm] O2 Sat by Pulse 98 97 Oximetry 07/08/16 07/08/16 07/08/16 08:56 09:01 09:06 Temperature Pulse Rate 78 71 70 Pulse Rate [ From Monitor] Respiratory Rate Blood Pressure Blood Pressure [Right Arm] O2 Sat by Pulse 98 98 97 Oximetry 07/08/16 07/08/16 07/08/16 09:07 09:08 09:17 Temperature Pulse Rate 70 76 Pulse Rate [ From Monitor] Respiratory Rate Blood Pressure 147/83 Blood Pressure [Right Arm] O2 Sat by Pulse 92 70 L Oximetry 07/08/16 07/08/16 07/08/16 09:19 09:23 09:24 Temperature Pulse Rate 57 L 73 71 Pulse Rate [ From Monitor] Respiratory Rate Blood Pressure 145/81 Blood Pressure [Right Arm] O2 Sat by Pulse 75 L 97 Oximetry 07/08/16 07/08/16 07/08/16 09:29 09:34 09:37 Temperature Pulse Rate 75 77 74 Pulse Rate [ From Monitor] Respiratory Rate Blood Pressure 169/84 Blood Pressure [Right Arm] O2 Sat by Pulse 96 96 92 Oximetry 07/08/16 07/08/16 07/08/16 09:39 09:43 09:44 Temperature Pulse Rate 79 33 L 74 Pulse Rate [ From Monitor] Respiratory Rate Blood Pressure Blood Pressure [Right Arm] O2 Sat by Pulse 96 83 L 98 Oximetry 07/08/16 07/08/16 07/08/16 09:49 09:50 09:53 Temperature Pulse Rate 76 83 75 Pulse Rate [ From Monitor] Respiratory Rate Blood Pressure 161/83 Blood Pressure [Right Arm] O2 Sat by Pulse 95 94 Oximetry 07/08/16 07/08/16 07/08/16 09:54 09:57 09:59 Temperature Pulse Rate 77 82 79 Pulse Rate [ From Monitor] Respiratory Rate Blood Pressure Blood Pressure [Right Arm] O2 Sat by Pulse 96 94 95 Oximetry 07/08/16 07/08/16 07/08/16 10:03 10:04 10:07 Temperature Pulse Rate 87 86 79 Pulse Rate [ From Monitor] Respiratory Rate Blood Pressure 148/78 Blood Pressure [Right Arm] O2 Sat by Pulse 94 94 Oximetry 07/08/16 07/08/16 07/08/16 10:09 10:14 10:19 Temperature Pulse Rate 80 81 84 Pulse Rate [ From Monitor] Respiratory Rate Blood Pressure Blood Pressure [Right Arm] O2 Sat by Pulse 94 94 93 Oximetry 07/08/16 07/08/16 07/08/16 10:22 10:23 10:24 Temperature Pulse Rate 80 82 83 Pulse Rate [ From Monitor] Respiratory Rate Blood Pressure 157/83 Blood Pressure [Right Arm] O2 Sat by Pulse 94 95 Oximetry 07/08/16 07/08/16 07/08/16 10:29 10:34 10:37 Temperature Pulse Rate 84 87 80 Pulse Rate [ From Monitor] Respiratory Rate Blood Pressure 157/82 Blood Pressure [Right Arm] O2 Sat by Pulse 94 95 Oximetry 07/08/16 07/08/16 07/08/16 10:39 10:44 10:49 Temperature Pulse Rate 84 86 82 Pulse Rate [ From Monitor] Respiratory Rate Blood Pressure Blood Pressure [Right Arm] O2 Sat by Pulse 96 96 96 Oximetry 07/08/16 07/08/16 07/08/16 10:53 10:54 10:59 Temperature Pulse Rate 84 83 104 H Pulse Rate [ From Monitor] Respiratory Rate Blood Pressure 164/82 Blood Pressure [Right Arm] O2 Sat by Pulse 93 92 82 L Oximetry - Exam Cardiovascular: Regular rate Abdomen: Present: normal appearance, soft FHR: category 1 Uterine Contraction Monitor Mode: External - Labs Labs: Abnormal Labs 07/06/16 07/06/16 07/07/16 20:00 20:00 20:45 Hgb 8.3 L Hct 27.8 L MCV 68 L MCH 20 L RDW 19.5 H Potassium 3.5 L Carbon Dioxide 19 L BUN 22 H Creatinine 0.6 L Glucose 117 H Calcium 8.3 L Albumin 2.9 L Ur Total Protein 24 Hr 2048.00 H Urine Total Protein 256 H Laboratory Results - last 24 hr 07/07/16 20:45 Urine Total Volume 800 Ur Total Protein 24 Hr 2048.00 H Urine Total Protein 256 H
--- NOTE | 2016-07-08 18:26 | Anesthesia Consultation ---
Anesthesia Consult and Med Hx Date of service: 07/08/16 - Airway Anesthetic Teeth Evaluation: Good ROM Head & Neck: Adequate Mental/Hyoid Distance: Adequate Mallampati Class: Class II Intubation Access Assessment: Probably Good - Pulmonary Exam CTA: Yes - Cardiac Exam Cardiac Exam: RRR - Pre-Operative Health Status ASA Pre-Surgery Classification: ASA3, Emergency Proposed Anesthetic Plan: Epidural, Spinal - Pre-Anesthesia Comment Pre-Anesthesia Comments: IUGR, EGA 33.6 - Pulmonary Hx Asthma: No COPD: No Hx Pneumonia: No - Cardiovascular System Hx Hypertension: Yes (PIH) - Central Nervous System Hx Seizures: No Hx Psychiatric Problems: No - Endocrine Hx Renal Disease: No Hx End Stage Renal Disease: No Hx Hypothyroidism: No Hx Hyperthyroidism: No - Hematic Hx Anemia: No Hx Sickle Cell Disease: No - Other Systems Hx Alcohol Use: No
--- NOTE | 2016-07-08 18:27 | Anesthesia Day of Surgery ---
Anesthesia Day of Surgery - Day of Surgery Patient Examined: Yes Patient H&P Reviewed: Yes Patient is NPO: (FSP)
[2016-07-08] MEDS ORDERED: NACL 0.9% 500 ML 500 ML IV ONE (18:41)
[2016-07-08] MEDS ORDERED: BENADRYL IV ONE (18:43)
[2016-07-08] MEDS ORDERED: TYLENOL PO ONE (18:43)
--- NOTE | 2016-07-08 18:46 | Consultation ---
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 denies: gonorrhea, hepatitis B, hepatitis C, herpes, HIV, syphilis - Obstetrical History : 3 Medications and Allergies Allergies Allergy/AdvReac Type Severity Reaction Status Date / Time No Known Allergies Allergy Unverified 01/05/16 18:20 Active Meds: Active Medications Hydralazine HCl (Apresoline) 5 mg IV Q30MIN PRN PRN Reason: Hypertension Last Admin: 07/08/16 11:46 Dose: 5 mg Lactated Ringer's (Lactated Ringers) 1,000 mls @ 125 mls/hr IV DIRECT ROBIN Last Admin: 07/08/16 17:45 Dose: 125 mls/hr - Vital Signs Vital signs: Vital Signs Pulse Pulse Ox 67 99 07/06/16 16:31 07/06/16 16:31 Temp Pulse Resp BP Pulse Ox 99.8 F H 99 H 18 162/88 87 07/08/16 16:08 07/08/16 18:36 07/08/16 16:08 07/08/16 17:50 07/08/16 18:36 Results Result Diagrams: 07/06/16 20:00 07/06/16 20:00 Abnormal lab results 07/07/16 Range/Units 20:45 Ur Total Protein 24 Hr 2048.00 H (2-200) Urine Total Protein 256 H (5-11.8) mg/dL All other labs normal. Assessment and Plan 1. Madrigal IUP at 33 6/7 weeks 2. Severe Preeclampsia 3. IUGR 4. Anemia 5. Pos Quad Screen Recommendations: 1. Discussed with patient and family. Patient now requiring repeat doses of IV Hydralazine for labile BP's and now status post steroids. Recommend proceeding with delivery 2. Type and Cross for 2 units of PRBC's as H/H at 8.3/27 - may require transfusion 3. NICU consult if not done 4. Discussed with Dr. Campos and in agreement with delivery
[2016-07-08] MEDS ORDERED: REGLAN IV SCH (20:44)
[2016-07-08] MEDS ORDERED: BICITRA PO SCH (20:44)
[2016-07-08] MEDS ORDERED: PEPCID IV SCH (20:44)
[2016-07-08] MEDS ORDERED: LACTATED RINGERS 1,000 ML IV NR (21:00)
[2016-07-08] MEDS ORDERED: PITOCin/NS 20 UNIT/1000ML DRIP 1,000 ML IV SCH ×2 (21:00→23:45)
[2016-07-08] MEDS ORDERED: ANCEF/STERILE WATER 2 GM/20 ML 20 ML IV NR (21:00)
[2016-07-08] MEDS ORDERED: NACL 0.9% 1000 ML 1,000 ML IV SCH (21:30)
[2016-07-08] MEDS ORDERED: NACL 0.9% 1000 ML 1,000 ML ONE (22:02)
[2016-07-08] MEDS ORDERED: NACL 0.9% IR ONE (22:55)
[2016-07-08] MEDS ORDERED: WATER FOR IRRIG STERILE IR ONE (22:55)
[2016-07-08] MEDS ORDERED: SUBLIMAZE ONE (23:28)
[2016-07-08] MEDS ORDERED: MORPHINE ONE (23:29)
--- NOTE | 2016-07-08 23:41 | Operative Report ---
Operative Report Operative Report: Date of procedure: 07/08/2016 Pre-operative diagnosis: 1. Intrauterine at 33-6/7 weeks 2. Severe preeclampsia 3. IUGR 4. Transverse presentation Post-operative diagnosis: Same with breech presentation Procedure name(s): Primary low transverse section Surgeon: Brandon Campos MD Data Report Analyst: None Anesthesia: Epidural anesthesia by Dr. Salvador EBL: 750 mL's Findings: A 1749 g female Apgars 4 at 1 minute 9 at 5 minutes. Clear amniotic fluid. Bicornuate uterus. Normal tubes and ovaries bilaterally. Procedure: After the patient was prepped and draped in usual sterile fashion, and after satisfactory level of epidural anesthesia was obtained, the skin knife was used to make a transverse skin incision. The incision was excised down to layer of the fascia, which was nicked in the midline and extended laterally using the Bovie cautery. The rectus muscles were dissected off the rectus fascia both superiorly and inferiorly. The rectus bellies in the midline, and the peritoneum was entered under direct visualization. The peritoneal incision was extended superiorly and inferiorly. A bladder flap was created and the bladder blade was then placed. The uterus was scored in a curvilinear linear fashion, entered in the midline revealing clear amniotic fluid. The infant's breech was delivered onto the surgical field, followed by the delivery of the rest of the infant's body and the oropharynx and nasopharynx were bulb suctioned. The cord was doubly clamped and cut and the was handed to the waiting respiratory team. The placenta was manually removed from the uterus, and the uterus removed from its normal anatomical position. 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 The incision was inspected and found to be without extensions, it was then closed in 2 layers using 0 Vicryl suture in a running interlocking fashion, the second layer imbricating the first. After good hemostasis was achieved, copious amounts or irrigation was performed, and the gutters were suctioned free of blood and blood clots. Tisseel sealant was sprayed across the uterine incision. The uterus was then returned to its normal anatomical position, and after excellent hemostasis assured, the peritoneum was reapproximated using 3-0 Vicryl suture in a running interlocking fashion, and then the rectus muscles were reapproximated using 3-0 Vicryl suture in a [id number] configuration. The fascia was then reapproximated using 0 Vicryl suture in running interlocking fashion. The subcutaneous layer was made hemostatic using Bovie cautery, the Tisseel sealant was sprayed across the fascial incision and the skin edges reapproximated using 4-0 Vicryl suture in a subcuticular fashion. Patient tolerated the procedure well was transported to recovery in stable condition.
[2016-07-08] MEDS ORDERED: D5LR 1,000 ML IV SCH (23:45)
[2016-07-08] MEDS ORDERED: SODIUM CHLORIDE FLUSH SYRINGE 10 ML IV NR (23:45)
[2016-07-08] MEDS ORDERED: TYLENOL PO PRN (23:46)
[2016-07-08] MEDS ORDERED: LANSINOH TP PRN (23:46)
[2016-07-08] MEDS ORDERED: TUCKS PAD TP PRN (23:46)
[2016-07-08] MEDS ORDERED: PERCOCET 5/325 PO PRN (23:46)
[2016-07-08] MEDS ORDERED: PHENERGAN PR PRN (23:46)
[2016-07-08] MEDS ORDERED: MYLICON PO PRN (23:46)
[2016-07-08] MEDS ORDERED: NARCAN 0.4 MG/1 ML IV PRN (23:46)
[2016-07-08] MEDS ORDERED: NORCO 5/325 PO PRN (23:46)
[2016-07-08] MEDS ORDERED: MILK OF MAGNESIA PO PRN (23:46)
[2016-07-08] MEDS ORDERED: SENOKOT PO PRN (23:46)
[2016-07-08] MEDS ORDERED: ZOFRAN IV PRN (23:46)
[2016-07-09] MEDS: TORADOL IV PRN ×2 (00:34→20:47)
[2016-07-09] MEDS: MAGNESIUM SULFATE 40GM/1000ML 1,000 ML IV SCH ×2 (00:34→17:00)
[2016-07-09] MEDS: APRESOLINE IV PRN (00:50)
[2016-07-09] MEDS ORDERED: DILAUDID IV PRN (03:46)
[2016-07-09] MEDS ORDERED: M-M-R II VACCINE SUB-Q ONE (06:00)
[2016-07-09] MEDS ORDERED: BOOSTRIX IM ONE (06:00)
[2016-07-09] MEDS: ANCEF/NS 1 GM/50 ML 50 ML IV SCH ×2 (07:28→14:54)
--- NOTE | 2016-07-09 09:32 | Progress Note ---
Assessment and Plan A: POD #1 for preeclampsia, Breech, Stable P:Continued post op care Subjective - Subjective Date of service: 07/09/16 Principal diagnosis: IUP @ 33 6/7 weeks; Severe IUGR; Preeclampsia Patient reports: appetite normal, pain well controlled : in NICU Objective - Vital Signs Latest vital signs: Vital Signs Temp Pulse Pulse Resp BP BP Pulse Ox 07/09/16 08:00 97.5 F L 106 H 18 146/77 07/09/16 06:10 98.2 F 77 20 144/78 07/09/16 04:08 20 07/09/16 04:00 98.6 F 78 18 135/72 07/09/16 01:40 98.0 F 79 20 147/85 07/09/16 01:00 77 16 151/95 100 07/09/16 00:55 75 14 148/99 100 07/09/16 00:50 73 19 152/92 100 07/09/16 00:45 76 11 L 179/101 100 07/09/16 00:40 77 12 172/100 99 07/09/16 00:35 68 15 171/101 98 07/09/16 00:34 18 07/09/16 00:30 65 17 154/96 97 07/09/16 00:25 70 17 160/95 100 07/09/16 00:20 70 14 164/96 100 07/09/16 00:15 66 11 L 155/98 100 07/09/16 00:10 66 17 148/102 100 07/09/16 00:05 71 12 151/100 100 07/09/16 00:00 70 12 158/97 100 07/08/16 23:56 75 12 151/98 99 07/08/16 23:50 97.8 F 75 99 07/08/16 23:49 100 07/08/16 22:26 79 165/93 07/08/16 22:25 90 78 L 07/08/16 22:24 85 93 07/08/16 22:21 75 163/92 07/08/16 22:20 79 100 07/08/16 22:18 69 90 07/08/16 22:15 99.2 F 74 20 170/94 96 07/08/16 22:11 75 170/94 07/08/16 22:10 83 99 07/08/16 22:05 75 97 07/08/16 22:00 72 98 07/08/16 21:55 73 98 07/08/16 21:50 73 97 07/08/16 21:45 71 97 07/08/16 21:41 71 163/89 07/08/16 21:40 75 97 07/08/16 21:35 69 96 07/08/16 21:30 74 98 07/08/16 21:25 73 98 07/08/16 21:20 79 97 07/08/16 21:15 73 97 07/08/16 21:11 72 160/93 07/08/16 21:10 69 98 07/08/16 21:05 79 98 07/08/16 21:00 77 99 07/08/16 20:55 77 98 07/08/16 20:50 75 100 07/08/16 20:45 74 99 07/08/16 20:41 73 167/94 07/08/16 20:40 76 99 07/08/16 20:35 79 99 07/08/16 20:30 75 99 07/08/16 20:25 79 99 07/08/16 20:20 75 98 07/08/16 20:15 86 99 07/08/16 20:11 76 155/87 07/08/16 20:10 75 99 07/08/16 20:05 86 98 07/08/16 20:00 82 98 07/08/16 19:55 86 98 07/08/16 19:50 86 98 07/08/16 19:45 88 99 07/08/16 19:41 80 148/84 07/08/16 19:40 78 98 07/08/16 19:35 80 98 07/08/16 19:30 77 99 07/08/16 19:25 85 99 07/08/16 19:20 84 98 07/08/16 19:15 94 H 98 07/08/16 19:11 101 H 137/94 07/08/16 19:10 77 81 L 07/08/16 19:07 175 H 71 L 07/08/16 18:57 69 L 07/08/16 18:50 92 07/08/16 18:42 71 L 07/08/16 18:41 65 84 07/08/16 18:36 99 H 87 07/08/16 18:34 108 H 100 07/08/16 18:30 80 L 07/08/16 18:10 88 07/08/16 18:09 99 H 80 L 07/08/16 18:01 80 98 07/08/16 17:58 75 93 07/08/16 17:56 86 100 07/08/16 17:51 92 H 98 07/08/16 17:50 76 162/88 07/08/16 17:46 79 100 07/08/16 17:43 78 91 07/08/16 17:41 89 99 07/08/16 17:36 88 97 07/08/16 17:31 85 97 07/08/16 17:30 88 161/89 07/08/16 17:26 82 98 07/08/16 17:21 81 98 07/08/16 17:16 80 99 07/08/16 17:11 92 H 100 07/08/16 17:10 83 146/84 07/08/16 17:06 87 100 07/08/16 17:01 93 H 100 07/08/16 16:56 86 99 07/08/16 16:51 86 158/88 99 07/08/16 16:46 93 H 99 07/08/16 16:41 107 H 99 07/08/16 16:36 95 H 89 07/08/16 16:31 92 H 97 07/08/16 16:30 96 H 162/88 87 07/08/16 16:26 109 H 99 07/08/16 16:21 97 H 98 07/08/16 16:18 100 H 137/75 07/08/16 16:16 70 86 07/08/16 16:11 79 L 07/08/16 16:09 169 H 84 07/08/16 16:08 99.8 F H 97 H 18 140/82 99 07/08/16 16:06 90 85 07/08/16 16:04 95 H 97 07/08/16 15:59 95 H 97 07/08/16 15:54 91 H 97 07/08/16 15:50 97 H 140/82 92 07/08/16 15:49 89 97 07/08/16 15:44 94 H 97 07/08/16 15:39 97 H 98 07/08/16 15:34 91 H 97 07/08/16 15:30 91 H 135/73 93 07/08/16 15:29 91 H 97 07/08/16 15:24 91 H 96 07/08/16 15:19 95 H 97 07/08/16 15:14 110 H 98 07/08/16 15:10 97 H 138/80 93 07/08/16 15:09 96 H 98 07/08/16 15:04 98 H 98 07/08/16 14:59 118 H 97 07/08/16 14:54 98 H 96 07/08/16 14:50 94 H 138/76 07/08/16 14:49 99 H 97 07/08/16 14:44 112 H 95 07/08/16 14:39 100 H 97 07/08/16 14:34 98 H 97 07/08/16 14:30 102 H 132/73 94 07/08/16 14:29 102 H 96 07/08/16 14:24 107 H 98 07/08/16 14:19 107 H 98 07/08/16 14:14 104 H 98 07/08/16 14:10 102 H 137/75 94 07/08/16 14:09 105 H 98 07/08/16 14:04 106 H 99 07/08/16 13:59 101 H 98 07/08/16 13:54 101 H 98 07/08/16 13:51 106 H 139/74 07/08/16 13:49 108 H 98 07/08/16 13:44 105 H 98 07/08/16 13:39 106 H 97 07/08/16 13:34 109 H 99 07/08/16 13:30 103 H 134/74 07/08/16 13:29 115 H 97 07/08/16 13:24 109 H 98 07/08/16 13:19 113 H 97 07/08/16 13:14 100 H 98 07/08/16 13:11 107 H 136/64 94 07/08/16 13:09 110 H 97 07/08/16 13:04 105 H 98 07/08/16 12:59 108 H 97 07/08/16 12:54 109 H 98 07/08/16 12:50 106 H 135/75 07/08/16 12:49 111 H 98 07/08/16 12:44 105 H 98 07/08/16 12:39 102 H 98 07/08/16 12:34 103 H 98 07/08/16 12:32 135/73 07/08/16 12:30 104 H 135/73 07/08/16 12:29 104 H 98 07/08/16 12:24 103 H 99 07/08/16 12:19 108 H 99 07/08/16 12:14 113 H 98 07/08/16 12:11 102 H 137/71 07/08/16 12:09 113 H 98 07/08/16 12:04 108 H 99 07/08/16 11:59 113 H 99 07/08/16 11:54 120 H 99 07/08/16 11:50 102 H 137/73 07/08/16 11:49 96 H 99 07/08/16 11:46 161/89 07/08/16 11:44 104 H 98 07/08/16 11:39 97 H 99 07/08/16 11:34 94 H 99 07/08/16 11:31 90 161/89 07/08/16 11:29 97 H 99 07/08/16 11:24 92 H 99 07/08/16 11:19 100 H 100 07/08/16 11:14 98 H 98 07/08/16 11:09 96 H 97 07/08/16 11:07 88 155/82 93 07/08/16 11:05 90 164/94 07/08/16 11:04 100 H 98 07/08/16 10:59 104 H 82 L 07/08/16 10:54 83 92 07/08/16 10:53 84 164/82 93 07/08/16 10:49 82 96 07/08/16 10:44 86 96 07/08/16 10:39 84 96 07/08/16 10:37 80 157/82 07/08/16 10:34 87 95 07/08/16 10:29 84 94 07/08/16 10:24 83 95 07/08/16 10:23 82 94 07/08/16 10:22 80 157/83 07/08/16 10:19 84 93 07/08/16 10:14 81 94 07/08/16 10:09 80 94 07/08/16 10:07 79 148/78 07/08/16 10:04 86 94 07/08/16 10:03 87 94 07/08/16 09:59 79 95 07/08/16 09:57 82 94 07/08/16 09:54 77 96 07/08/16 09:53 75 161/83 07/08/16 09:50 83 94 07/08/16 09:49 76 95 07/08/16 09:44 74 98 07/08/16 09:43 33 L 83 L 07/08/16 09:39 79 96 07/08/16 09:37 74 169/84 92 07/08/16 09:34 77 96 Intake and Output 07/08/16 07/09/16 07/09/16 22:59 06:59 14:59 Intake Total 650 1740 Output Total 350 Balance 650 1390 Intake: IV 400 1500 PITOCin/NS 20 UNIT/1000ML 300 DRIP 1,000 ML @ 125 mls/ hr IV TITR ROBIN Rx#: [id number] Magnesium Sulfate 40Gm/ 200 1000ML 1,000 ml @ 2 GM/HR 50 mls/hr IV DIRECT ROBIN Rx#:[id number] Oral 240 Blood Product 250 Leukoreduced Red Blood 250 Cells Unit [id number] Output: Urine 350 Uretheral ([place]) 50 Indwelling Catheter 200 Other: Total, Intake Amount 240 Total, Output Amount 200 # Voids Void 1 Estimated Blood Loss 750 - Exam Breasts: Present: deferred Cardiovascular: Present: Regular rate Lungs: Present: Clear to auscultation Abdomen: Present: soft Uterus: Present: fundal height below umbilicus Extremities: Present: normal Deep Tendon Reflex Grade: Normal +2 Incision: Present: dressed - Labs Labs: Abnormal lab results 07/06/16 Range/Units 20:00 Crossmatch See Detail
[2016-07-09] MEDS: PRENATAL VITAMIN PO SCH (10:35)
[2016-07-09] MEDS: FEOSOL PO SCH (10:35)
[2016-07-09 13:00] LABS: Hematocrit 24.8 % (30.3-42.9); Hemoglobin 7.6 gm/dl (10.1-14.3)
--- NOTE | 2016-07-09 14:25 | Progress Note ---
Subjective Date of service: 07/09/16 Principal diagnosis: IUP @ 33 6/7 weeks; Severe IUGR; Preeclampsia Interval history: Patient is comfortable. Pain is well controlled with pain meds. No ambulated due to MgSO4 infusion. No residual neurological deficit. No anesthesia complications Objective - Constitutional Vitals: Vital Signs - 12hr 07/09/16 07/09/16 07/09/16 04:00 04:08 06:10 Temperature 98.6 F 98.2 F Pulse Rate [ 78 77 From Monitor] Respiratory 18 20 20 Rate Blood Pressure 135/72 144/78 [Right Arm] 07/09/16 07/09/16 07/09/16 08:00 11:00 13:00 Temperature 97.5 F L 98.1 F 98.4 F Pulse Rate [ 106 H 93 H 93 H From Monitor] Respiratory 18 18 18 Rate Blood Pressure 146/77 140/79 137/79 [Right Arm] - Labs CBC & Chem 7: 07/09/16 12:35 07/06/16 20:00 Labs: Abnormal lab results 07/06/16 07/09/16 Range/Units 20:00 12:35 Hgb 7.6 L (10.1-14.3) gm/dl Hct 24.8 L (30.3-42.9) % Crossmatch See Detail
[2016-07-10] MEDS ORDERED: BOOSTRIX IM ONE (06:00)
[2016-07-10] MEDS: PRENATAL VITAMIN PO SCH (10:32)
--- NOTE | 2016-07-10 11:43 | Progress Note ---
Assessment and Plan A: POD #2 -stable Anemia P: Discharge home in am Subjective - Subjective Date of service: 07/10/16 Principal diagnosis: IUP @ 33 6/7 weeks; Severe IUGR; Preeclampsia Patient reports: appetite normal [place]: in NICU Objective - Vital Signs Latest vital signs: Vital Signs Temp Pulse Resp BP 07/10/16 07:28 98.4 F 76 16 134/84 07/10/16 04:55 98.6 F 91 H 20 138/89 07/10/16 01:20 98.9 F 82 20 150/91 07/09/16 22:20 85 152/89 07/09/16 20:40 98.3 F 86 20 147/85 07/09/16 18:00 97.4 F L 91 H 18 146/87 07/09/16 16:00 97.5 F L 85 18 143/85 07/09/16 13:00 98.4 F 93 H 18 137/79 Intake and Output 07/09/16 07/10/16 07/10/16 22:59 06:59 14:59 Intake Total 1205 490 240 Output Total 400 600 Balance 805 -110 240 Intake: IV 825 250 Magnesium Sulfate 40Gm/ 400 25 1000ML 1,000 ml @ 2 GM/HR 50 mls/hr IV DIRECT ROBIN Rx#:[id number] Ancef/Ns 1 gm/50 ml 50 ml 50 @ 100 mls/hr IV Q8H ROBIN Rx#:[id number] D5lr 1,000 ml @ 125 mls/ 375 225 hr IV DIRECT ROBIN Rx#: [id number] Oral 260 240 Intake, Free Water 120 240 Output: Urine 400 600 Void 250 Indwelling Catheter 400 350 Other: Total, Intake Amount 260 240 Total, Output Amount 400 250 # Voids Void 1 Indwelling Catheter 1 # Bowel Movements 0 - Exam Breasts: Present: deferred Cardiovascular: Present: Regular rate Lungs: Present: Clear to auscultation Abdomen: Present: soft Vulva: both: normal Uterus: Present: fundal height below umbilicus Deep Tendon Reflex Grade: Normal +2 Incision: Present: intact - Labs Labs: Abnormal lab results 07/06/16 07/09/16 Range/Units 20:00 12:35 Hgb 7.6 L (10.1-14.3) gm/dl Hct 24.8 L (30.3-42.9) % Crossmatch See Detail
--- NOTE | 2016-07-10 11:44 | Discharge Summary ---
Providers - Providers Date of Admission: 07/07/16 08:46 Date of discharge: 07/11/16 Attending physician: YAZMIN MARQUEZ MD 07/06/16 20:42 Consult to Physician [CONS] Routine Consulting Provider: CHARMAINE LOPEZ Reason For Exam: severe IUGR and HTN Place consult to:: [facility] Notified:: yes Phone number called:: [phone] Was contact made?: Yes If yes, spoke with:: Dr. Lopez Time called:: 16:05 Comment:: Dr. Campos spoke with Dr. Lopez 07/08/16 19:01 Consult to Physician [CONS] Urgent Consulting Provider: PEDRO POPE Reason For Exam: IUP @ 34 weeks; Severe preecalmpsia; IUGR Place consult to:: NICU Notified:: NICU Phone number called:: [phone] Was contact made?: Yes If yes, spoke with:: Sarah Time called:: 19:02 Primary care physician: YAZMIN MARQUEZ MD Hospitalization Reason for admission: section, other (preeclampsia, breech) Delivery: Procedure: section Episiotomy: none Laceration: none complications: none Discharge diagnosis: delivery [place] baby: female Condition at discharge: Good Disposition: DISCHARGED TO HOME OR SELFCARE Plan - Discharge Medications Prescriptions: Ferrous Sulfate [Feosol 325 MG tab] 325 mg PO BID #60 tablet HYDROcodone/APAP 5-325 [[place] 5/325] 1 each PO Q6HR PRN #30 tablet PRN Reason: Pain Ibuprofen [Motrin] 800 mg PO Q8HR PRN #30 tablet PRN Reason: Moder Pain Unrelieved By [place] Vit W-Ca,Fe,FA(<1 mg) [ Vitamins] 1 each PO DAILY #30 tablet - Provider Discharge Summary Activity: routine, no sex for 6 weeks, no strenuous exercise Diet: routine Instructions: routine Additional instructions: [] Smoking cessation referral if applicable(refer to patient education folder for contact #) [] Refer to [facility]'s [facility] Booklet Call your doctor immediately for: * Fever > 100.5 * Heavy vaginal bleeding ( >1 pad per hour) * Severe persistent headache * Shortness of breath * Reddened, hot, painful area to leg or breast * Drainage or odor from incision. * Keep incision clean and dry at all times and follow doctor's instructions regarding bathing/showering - Follow up plan Follow up: [facility] [Provider Group] - 14 Days
[2016-07-10] MEDS ORDERED: INFED IM ONE (13:00)
[2016-07-10] MEDS: MOTRIN PO PRN (17:46)
[2016-07-10] MEDS: FEOSOL PO SCH (17:47)
[2016-07-11] MEDS: MOTRIN PO PRN (09:31)
[2016-07-11] MEDS: PRENATAL VITAMIN PO SCH (09:31)
[2016-07-11] MEDS: FEOSOL PO SCH (09:31)
[2016-07-11 14:26] VITALS: BP 155/94
[2016-07-11] MEDS ORDERED: M-M-R II VACCINE SUB-Q ONE (14:45)
== END 2016-07-11 15:10 | disposition home or self-care (01) | DRG 765 ==
LOC: TRG 15:44 → LD 16:45 → TRG 16:45 → OBSVTOIN 07-07 08:46 → APU 07-08 23:47 → OB 07-09 04:01
PROVIDERS: ADMIT Obstetrics & Gynecology; ATTEND Obstetrics & Gynecology
PROC: 10D00Z1 Extraction of Products of Conception, Low, Open Approach (ICD-10-PCS; principal; 2016-07-08)
PROC: 30233N1 Transfusion of Nonautologous Red Blood Cells into Peripheral Vein, Percutaneous Approach (ICD-10-PCS; 2016-07-08)
DX: O14.14 Severe pre-eclampsia complicating childbirth (principal); O60.14X0 Preterm labor third trimester with preterm delivery third trimester, not applicable or unspecified; O36.5930 Maternal care for other known or suspected poor fetal growth, third trimester, not applicable or unspecified; O99.02 Anemia complicating childbirth; D64.9 Anemia, unspecified; O32.1XX0 Maternal care for breech presentation, not applicable or unspecified; Z3A.33 33 weeks gestation of pregnancy; Z37.0 Single live birth; O34.03 Maternal care for unspecified congenital malformation of uterus, third trimester; Q51.3 Bicornate uterus
CPT/HCPCS: 36415; 76805; 76819; 76820; 80048; 80074; 81001; 84156; 85014; 85018; 85027; 86850; 86900; 86901; 86920; 88307; 90471; 90707; 90715; 99211; A6250; C9250; G0378; G0463; J0360; J0690; J0702; J1170; J1750; J1885; J2270; J2590; J2765; J3010; J3475; J7030; J7120; J7121; P9016

== ENCOUNTER 2016-10-02 16:03 | Emergency (ER) | payer SELFPAY ==
--- NOTE | 2016-10-02 19:44 | Emergency Department Report ---
ED ENT HPI - General Chief complaint: Dental/Oral Stated complaint: TOOTHACHE Time Seen by Provider: 10/02/16 19:34 Source: patient Mode of arrival: Ambulatory Limitations: No Limitations - History of Present Illness Initial comments: PT c/o R upper toothache that started after eating this afternoon, no relief with Motrin. PT states that she is 2 months PP and not breast feeding. PT states while she was , she saw dentist and was told that she needed some dental work. PT states she was told that she could not have the dental work while . PT states she is going to call the Dentist on Tuesday. MD complaint: tooth pain -: Gradual, hour(s) Location: tooth # 1 - pain and tenderness Severity scale (0 -10): 10 Quality: constant Consistency: constant Improves with: none Worsens with: eating Context- Dental: history of dental caries Associated Symptoms: toothache. denies: fever, gum swelling - Related Data Allergies Allergy/AdvReac Type Severity Reaction Status Date / Time No Known Allergies Allergy Verified 10/02/16 16:26 ED Dental HPI - General Chief complaint: Dental/Oral Stated complaint: TOOTHACHE Time Seen by Provider: 10/02/16 19:34 Source: patient Mode of arrival: Ambulatory Limitations: No Limitations - Related Data Allergies Allergy/AdvReac Type Severity Reaction Status Date / Time No Known Allergies Allergy Verified 10/02/16 16:26 ED Review of Systems ROS: Stated complaint: TOOTHACHE Other details as noted in HPI Comment: All other systems reviewed and negative Constitutional: denies: chills, fever ENT: dental pain Gastrointestinal: denies: nausea, vomiting Genitourinary: denies: abnormal menses ED Past Medical Hx - Past Medical History Hx Hypertension: Yes (PIH) Hx Congestive Heart Failure: No Hx Diabetes: No Hx Deep Vein Thrombosis: No Hx Renal Disease: No Hx Sickle Cell Disease: No Hx Seizures: No Hx Asthma: No Hx COPD: No Hx HIV: No - Surgical History Additional Surgical History: - Social History Smoking Status: Never Smoker Substance Use Type: None ED Physical Exam - General Limitations: No Limitations General appearance: alert, in no apparent distress - Head Head exam: Present: atraumatic, normocephalic - Eye Eye exam: Present: normal appearance, PERRL, EOMI - ENT ENT exam: Present: mucous membranes moist, normal external ear exam - Expanded ENT Exam Expanded Mouth exam: Absent: drooling, trismus Teeth exam: Present: dental caries, dental tenderness # (3). Absent: gingival enlargement Throat exam: Positive: normal inspection. Negative: tonsillar erythema, tonsillomegaly, tonsillar exudate, R peritonsillar mass, L peritonsillar mass - Neck Neck exam: Present: normal inspection, full ROM. Absent: lymphadenopathy - Respiratory Respiratory exam: Present: normal lung sounds bilaterally. Absent: respiratory distress - Cardiovascular Cardiovascular Exam: Present: regular rate, normal rhythm - Extremities Exam Extremities exam: Present: normal inspection, full ROM - Back Exam Back exam: Present: normal inspection, full ROM. Absent: tenderness, CVA tenderness (R), CVA tenderness (L) - Neurological Exam Neurological exam: Present: alert, oriented X3 - Psychiatric Psychiatric exam: Present: normal affect, normal mood - Skin Skin exam: Present: warm, dry, intact ED Course Vital Signs 10/02/16 16:23 Temperature 98.2 F Pulse Rate 85 Respiratory 16 Rate Blood Pressure 146/98 O2 Sat by Pulse 100 Oximetry - Reevaluation(s) Reevaluation #1: 10/02/16 19:44 PT aware of plan of care, no questions at this time. - Pulse Oximetry Interpretation Digit-Finger Initial Pulse Oximetry Readin Actions Taken: none ED Medical Decision Making - Differential Diagnosis toothache, dental abscess Critical care attestation.: If time is entered above; I have spent that time in minutes in the direct care of this critically ill patient, excluding procedure time. ED Disposition Clinical Impression: Toothache Disposition: DISCHARGED TO HOME OR SELFCARE Is pt being admited?: No Does the pt Need Aspirin: No Condition: Stable Instructions: Dental Caries (ED), Toothache (ED) Additional Instructions: No driving or ETOH after Tylenol #3 Follow up with Dentist on Tuesday Good oral hygiene Referrals: PRIMARY CARE, [Primary Care Provider] - 3-5 Days Time of Disposition: 19:46
[2016-10-02 20:55] VITALS: BP 147/82
== END 2016-10-02 20:55 | disposition home or self-care (01) ==
LOC: ED 16:03
DX: K08.89 Other specified disorders of teeth and supporting structures (principal); I10 Essential (primary) hypertension
CPT/HCPCS: 99282

== ENCOUNTER 2016-12-20 09:48 | Emergency (ER) | payer SELFPAY ==
[2016-12-20 09:56] VITALS: BP 105/70
[2016-12-20 10:54] LABS: Bilirubin,Urine NEG (Negative); Blood,Urine MOD (Negative); Ketones,Urine NEG (Negative); Leukocyte Esterase,Urine LG (Negative); Mucus,Urine 3+ /HPF; Nitrite,Urine NEG (Negative)
[2016-12-20 10:59] LABS: RBC,Urine > 182.0 /HPF (0.0-6.0); WBC,Urine > 182.0 /HPF (0.0-6.0)
--- NOTE | 2016-12-20 11:14 | Emergency Department Report ---
ED Female HPI - General Chief complaint: Urogenital-Female Stated complaint: LOW ABD PAIN Time Seen by Provider: 12/20/16 11:04 Source: patient Mode of arrival: Ambulatory Limitations: No Limitations - History of Present Illness Initial comments: She comes into the ER today with complaints of dysuria for the past 3 days. Patient denies any flank pain, abdominal pain. Patient states that the pain mostly comes up on the end of urinating. Patient denies any vaginal bleeding. Patient also states that she is 2 months late on her menses. MD Complaint: dysuria - Related Data Previous Rx's Medication Instructions Recorded Last Taken Type Acetaminophen/Codeine [Tylenol #3] 1 tab PO Q6H PRN #10 tab 10/02/16 Unknown Rx Amoxicillin 500 mg PO BID #20 capsule 10/02/[address] [facility] [place]/M-Cryst 100 mg PO Q12HR #14 capsule 12/20/16 Unknown Rx [Macrobid CAP] Allergies Allergy/AdvReac Type Severity Reaction Status Date / Time No Known Allergies Allergy Verified 10/02/16 16:26 ED Review of Systems ROS: Stated complaint: LOW ABD PAIN Other details as noted in HPI Constitutional: denies: chills, fever Eyes: denies: eye pain, eye discharge, vision change ENT: denies: ear pain, throat pain Respiratory: denies: cough, shortness of breath, wheezing Cardiovascular: denies: chest pain, palpitations Endocrine: no symptoms reported Gastrointestinal: denies: abdominal pain, nausea, diarrhea Genitourinary: dysuria. denies: urgency, discharge Musculoskeletal: denies: back pain, joint swelling, arthralgia Skin: denies: rash, lesions Neurological: denies: headache, weakness, paresthesias Psychiatric: denies: anxiety, depression Hematological/Lymphatic: denies: easy bleeding, easy bruising ED Past Medical Hx - Past Medical History Hx Hypertension: Yes (PIH) Hx Congestive Heart Failure: No Hx Diabetes: No Hx Deep Vein Thrombosis: No Hx Renal Disease: No Hx Sickle Cell Disease: No Hx Seizures: No Hx Asthma: No Hx COPD: No Hx HIV: No - Surgical History Additional Surgical History: - Social History Smoking Status: Never Smoker Substance Use Type: None - Medications Home Medications: Home Medications Medication Instructions Recorded Confirmed Last Taken Type Acetaminophen/Codeine [Tylenol #3] 1 tab PO Q6H PRN #10 tab 10/02/16 Unknown Rx Amoxicillin 500 mg PO BID #20 capsule 10/02/[address] [facility] [place]/M-Cryst 100 mg PO Q12HR #14 capsule 12/20/16 Unknown Rx [Macrobid CAP] ED Physical Exam - General Limitations: No Limitations General appearance: alert, in no apparent distress - Head Head exam: Present: atraumatic, normocephalic - Eye Eye exam: Present: normal appearance - ENT ENT exam: Present: mucous membranes moist - Neck Neck exam: Present: normal inspection - Respiratory Respiratory exam: Present: normal lung sounds bilaterally. Absent: respiratory distress - Cardiovascular Cardiovascular Exam: Present: regular rate, normal rhythm. Absent: systolic murmur, diastolic murmur, rubs, gallop - GI/Abdominal GI/Abdominal exam: Present: soft, normal bowel sounds. Absent: distended, tenderness, guarding, rebound - Extremities Exam Extremities exam: Present: normal inspection - Back Exam Back exam: Present: normal inspection. Absent: CVA tenderness (R), CVA tenderness (L) - Neurological Exam Neurological exam: Present: alert, oriented X3 - Psychiatric Psychiatric exam: Present: normal affect, normal mood - Skin Skin exam: Present: warm, dry, intact, normal color. Absent: rash ED Course Vital Signs 12/20/16 09:51 Temperature 98.5 F Pulse Rate 88 Respiratory 16 Rate Blood Pressure 105/70 O2 Sat by Pulse 98 Oximetry ED Medical Decision Making - Lab Data Lab Results 12/20/16 Range/Units 09:45 Urine Color Yellow (Yellow) Urine Turbidity Cloudy (Clear) Urine pH 6.0 (5.0-7.0) Ur Specific [place] 1.021 (1.003-1.030) Urine Protein 100 mg/dl (Negative) mg/dL Urine Glucose (UA) Neg (Negative) mg/dL Urine Ketones Neg (Negative) mg/dL Urine Blood Mod (Negative) Urine Nitrite Neg (Negative) Urine Bilirubin Neg (Negative) Urine Urobilinogen 2.0 (<2.0) mg/dL Ur Leukocyte Esterase Lg (Negative) Urine WBC (Auto) > 182.0 H (0.0-6.0) /HPF Urine RBC (Auto) > 182.0 (0.0-6.0) /HPF U Epithel Cells (Auto) 9.0 (0-13.0) /HPF Urine Mucus 3+ /HPF Urine HCG, Qual Positive A (Negative) - Medical Decision Making Patient is nontoxic and hemodynamically stable. Urine results reviewed and discussed with patient in room. Patient has 5-month-old child with her in the room today. I informed patient that she is again in that she needs to be notifying her [facility] doctor and followed up for that. I will start patient on some antibiotics for urinary tract infection. Patient has no signs or symptoms consistent with pyelonephritis or sepsis. Patient is in agreement with treatment plan and patient is stable for discharge. Critical care attestation.: If time is entered above; I have spent that time in minutes in the direct care of this critically ill patient, excluding procedure time. ED Disposition Clinical Impression: UTI (urinary tract infection), Disposition: - TO HOME OR SELFCARE Is pt being admited?: No Does the pt Need Aspirin: No Condition: Good Instructions: (ED), Urinary Tract Infection in Women (ED) Prescriptions: Nitrofurantoin [facility]/M-Cryst [Macrobid CAP] 100 mg PO Q12HR #14 capsule Referrals: PRIMARY CARE, [Primary Care Provider] - 3-5 Days [facility], your [Other] - 3-5 Days Time of Disposition: 11:19
== END 2016-12-20 11:32 | disposition home or self-care (01) ==
LOC: ED 09:48
DX: O23.31 Infections of other parts of urinary tract in pregnancy, first trimester (principal); Z3A.08 8 weeks gestation of pregnancy; I10 Essential (primary) hypertension
CPT/HCPCS: 81001; 81025; 99283